=== PATIENT | female | born 1965 | race Caucasian/White ===

== ENCOUNTER 2021-02-17 08:34 | Emergency (ER) | payer BC ==
[~2021-02-17] VITALS: Ht 170.2 cm; Wt 88.0 kg
[2021-02-17 09:00] VITALS: BP 149/80
[2021-02-17] MEDS ORDERED: normal saline 1000ML IV soln IVB ONE (09:00)
[2021-02-17 09:33] LABS: BASOPHILS % (AUTO) 0.3 % (0-1); EOSINOPHILS % (AUTO) 0 % (0-6); HEMATOCRIT 41.2 % (35.0-45.0); HEMOGLOBIN 13.9 g/dl (12.0-16.0); LYMPHOCYTES # (AUTO) 0.9 X10'3 (1.1-4.8); LYMPHOCYTES % (AUTO) 20.3 % (21-51); MEAN CORPUSCULAR HEMOGLOBIN 30.4 PG (27.0-31.0); MEAN CORPUSCULAR HGB CONC 33.6 g/dL (33.0-36.5); MEAN CORPUSCULAR VOLUME 90.3 FL (78-98); MEAN PLATELET VOLUME 8.1 FL (7.4-10.4); MONOCYTES # (AUTO) 0.4 X10'3 (0-0.9); MONOCYTES % (AUTO) 9.2 % (2-12); NEUTROPHILS # (AUTO) 3.1 X10'3 (1.8-7.7); NEUTROPHILS % (AUTO) 70.2 % (42-75); PLATELET COUNT 188 X10'3 (140-440); RED BLOOD COUNT 4.56 X10'6 (4.20-5.60); WHITE BLOOD COUNT 4.4 X10'3 (4.5-11.0)
[2021-02-17 09:43] LABS: ALANINE AMINOTRANSFERASE 66 U/L (12-78); ALBUMIN/GLOBULIN RATIO 0.6 (1.1-1.5); ALKALINE PHOSPHATASE 100 IU/L (46-116); ANION GAP 11 (8-16); ASPARTATE AMINO TRANSFERASE 80 U/L (10-37); BILIRUBIN,TOTAL 0.2 MG/DL (0.1-1.0); BLOOD UREA NITROGEN 9 MG/DL (7-18); CALCIUM 8.1 MG/DL (8.5-10.1); CHLORIDE 99 MMOL/L (99-107); CREATININE 0.82 MG/DL (0.40-0.90); GLUCOSE 119 MG/DL (70-104); POTASSIUM 3.6 MMOL/L (3.5-5.1); SODIUM 135 MMOL/L (135-145); TOTAL PROTEIN 7.7 G/DL (6.4-8.2); eGFR 72 ML/MIN
[2021-02-17] MEDS ORDERED: acetaminophen 325mg tablet PO STA (09:45)
[2021-02-17] MEDS ORDERED: LEVO750T46 PO (10:16)
[2021-02-17] MEDS ORDERED: BUDE180A INH (10:16)
[2021-02-18] MEDS ORDERED: ALB0.5UD IH (23:40)
[2021-02-18] MEDS ORDERED: OXYGEN NASALCANN (23:40)
[2021-02-18] MEDS ORDERED: DEXA6TAB6 PO (23:40)
== END 2021-02-17 10:43 | disposition home or self-care (01) ==
LOC: ER 08:35
DX: R50.9 Fever, unspecified (principal); R53.1 Weakness; R53.83 Other fatigue; R42 Dizziness and giddiness; Z79.2 Long term (current) use of antibiotics; Z79.899 Other long term (current) drug therapy
CPT/HCPCS: 36415; 71045; 80053; 85025; 99284; J7030

== ENCOUNTER 2021-02-18 19:46 | Emergency (ER) | payer BC ==
[~2021-02-18] VITALS: Ht 170.2 cm; Wt 86.4 kg
[~2021-02-18 19:46] MED LIST: BUDE180A INH; LEVO750T46 PO
[2021-02-18 22:26] VITALS: BP 137/78
[2021-02-18] MEDS ORDERED: DEXA6TAB6 PO (23:40)
[2021-02-18] MEDS ORDERED: OXYGEN NASALCANN (23:40)
[2021-02-18] MEDS ORDERED: ALB0.5UD IH (23:40)
== END 2021-02-19 00:15 | disposition home or self-care (01) ==
LOC: ER 19:47
DX: U07.1 COVID-19 (principal); Z79.2 Long term (current) use of antibiotics; Z79.899 Other long term (current) drug therapy
CPT/HCPCS: 99282; 99283